=== PATIENT | male | born 1985 | race Caucasian/White ===

== ENCOUNTER 2023-12-16 22:04 | Inpatient (IN) | payer OTHER ==
[2023-12-16] MEDS ORDERED: Sodium Chloride 0.9% 10 ML Syringe FLUSH PRN (22:16)
[2023-12-16] MEDS ORDERED: Naloxone 0.4 MG/ML SDV IVPUSH PRN ×2 (22:19→22:59)
[2023-12-16] MEDS: Sodium Chloride 0.9% 1,000 ML IV ONE (22:35)
[2023-12-16] MEDS: Ondansetron 4 MG/2 ML SDV IVPUSH ONE (22:36)
[2023-12-16 22:37] LABS: BASOPHILS PERCENT AUTO 0.1 % (0.2-1.2); EOSINOPHILS PERCENT AUTO 0.1 % (0.0-4.0); HEMATOCRIT 42.7 % (40.0-52.0); HEMOGLOBIN 15.1 g/dL (14.0-18.0); IMMATURE GRAN ABSOLUTE AUTO 0.04 x10^3/uL (0.00-0.07); LYMPHOCYTES ABSOLUTE AUTO 0.4 x10^3/uL (1.0-4.8); LYMPHOCYTES PERCENT AUTO 2.7 % (25.0-50.0); MEAN CORPUSCULAR HEMOGLOBIN 30.8 pg (26.0-32.0); MEAN CORPUSCULAR HGB CONC 35.4 g/dL (32.0-36.0); MEAN CORPUSCULAR VOLUME 87.1 fL (78.0-93.0); MONOCYTES ABSOLUTE AUTO 0.2 x10^3/uL (0.0-0.8); MONOCYTES PERCENT AUTO 1.5 % (2.0-11.0); NEUTROPHILS ABSOLUTE AUTO 14.3 x10^3/uL (1.8-7.7); NEUTROPHILS PERCENT AUTO 95.3 % (50.0-80.0)
[2023-12-16] MEDS: HYDROmorphone 0.5 MG/0.5 ML Syringe IVPUSH ONE ×2 (22:38→23:14)
[2023-12-16 22:43] LABS: PLATELET COUNT,PLT 138 x10^3/uL (130-400)
[2023-12-16 22:54] LABS: A/G RATIO 1.54; ALBUMIN 4.3 g/dL (3.4-5.0); ANION GAP 20.3 mmol/L (5-15); BILIRUBIN TOTAL 0.7 mg/dL (0.2-1.0); CALCIUM 8.8 mg/dL (8.5-10.1); CREATININE 1.4 mg/dL (0.70-1.30); EST CRCL DRUG DOSING (CG) 79.27 mL/min; POTASSIUM,K 3.3 mmol/L (3.5-5.1); PROTEIN TOTAL,TP 7.1 g/dL (6.4-8.2)
[2023-12-16] MEDS: cefTRIAXone 1 GM Vial IVPUSH ONE (22:55)
[2023-12-16 22:58] LABS: LACTIC ACID 2.7 mmol/L (0.4-2.0)
[2023-12-17] MEDS: Acetaminophen 500 MG Tab PO ONE (00:02)
[2023-12-17] MEDS ORDERED: HYDROMORPHONE 1 MG/ML PO PRN (00:24)
[2023-12-17] MEDS: Sodium Chloride 0.9% 1,000 ML IV ONE (00:51)
[2023-12-17] MEDS: Sodium Chloride 0.9% 1,000 ML IV SCH (01:49)
[2023-12-17] MEDS: Ondansetron 4 MG/2 ML SDV IVPUSH PRN (06:41)
[2023-12-17 08:05] LABS: BASOPHILS PERCENT AUTO 0.1 % (0.2-1.2); EOSINOPHILS PERCENT AUTO 0.1 % (0.0-4.0); HEMATOCRIT 42.6 % (40.0-52.0); HEMOGLOBIN 14.6 g/dL (14.0-18.0); IMMATURE GRAN ABSOLUTE AUTO 0.02 x10^3/uL (0.00-0.07); LYMPHOCYTES ABSOLUTE AUTO 0.1 x10^3/uL (1.0-4.8); MEAN CORPUSCULAR HEMOGLOBIN 30.4 pg (26.0-32.0); MEAN CORPUSCULAR HGB CONC 34.3 g/dL (32.0-36.0); MEAN CORPUSCULAR VOLUME 88.8 fL (78.0-93.0); MONOCYTES ABSOLUTE AUTO 0.3 x10^3/uL (0.0-0.8); MONOCYTES PERCENT AUTO 2.9 % (2.0-11.0); NEUTROPHILS ABSOLUTE AUTO 9.5 x10^3/uL (1.8-7.7); PLATELET COUNT,PLT 98 x10^3/uL (130-400)
[2023-12-17 08:14] LABS: A/G RATIO 1.18; ALBUMIN 3.3 g/dL (3.4-5.0); BILIRUBIN TOTAL 0.9 mg/dL (0.2-1.0); CREATININE 1.3 mg/dL (0.70-1.30); EST CRCL DRUG DOSING (CG) 85.36 mL/min; PROTEIN TOTAL,TP 6.1 g/dL (6.4-8.2)
[2023-12-17 08:17] LABS: NEUTROPHILS PERCENT AUTO 95.7 % (50.0-80.0)
[2023-12-17] MEDS: HYDROmorphone 0.5 MG/0.5 ML Syringe IVPUSH PRN (08:20)
[2023-12-17] MEDS: Acetaminophen 325 MG Tab PO PRN (08:23)
[2023-12-17] MEDS: VANCOmycin 2 GM/400 ML 2 GM in Premix Bag 1 BAG IV ONE (08:36)
[2023-12-17] MEDS: Naltrexone 50 MG Tab PO SCH (10:30)
[2023-12-17] MEDS: Metoprolol Succinate 25 MG Tab.ER PO SCH (10:30)
[2023-12-17] MEDS: Sertraline 100 MG Tab PO SCH (10:30)
[2023-12-17] MEDS: HYDROmorphone 1 MG/ML Syringe IVPUSH PRN (10:57)
[2023-12-17] MEDS: cefTRIAXone 2 GM Vial IVPUSH SCH (12:38)
[2023-12-17 16:29] VITALS: BP 113/59; PULSE 104
[2023-12-17] MEDS ORDERED: Gabapentin 300 MG Cap PO SCH (21:00)
== END 2023-12-17 18:00 | disposition short-term general hospital (02) | DRG 603 ==
LOC: VM.ED 22:04 → VM.MS 23:20
PROVIDERS: ADMIT Physician Assistant; ATTEND Family Medicine
DX: L03.113 Cellulitis of right upper limb (principal); M71.121 Other infective bursitis, right elbow; E78.00 Pure hypercholesterolemia, unspecified; I10 Essential (primary) hypertension; G47.30 Sleep apnea, unspecified; F41.1 Generalized anxiety disorder; J45.20 Mild intermittent asthma, uncomplicated; G25.81 Restless legs syndrome; G47.33 Obstructive sleep apnea (adult) (pediatric); F10.91 Alcohol use, unspecified, in remission; Z79.899 Other long term (current) drug therapy
CPT/HCPCS: 36415; 73070-RT; 73200-RT; 80053; 83605; 85025; 87040; 96361; 96374; 96375; 96376; 99284; 99285-25; A9270-GY; J0696; J1170; J2405; J3372; J7030